=== PATIENT | female | born 1985 | race Caucasian/White ===

== ENCOUNTER 2017-04-05 17:30 | Emergency (ER) | payer SELFPAY ==
[~2017-04-05] VITALS: Ht 165.1 cm; Wt 80.0 kg
[2017-04-05] MEDS ORDERED: KETOROLAC TROMETHAMINE 60 MG/2 ML VIAL IM ONE (18:00)
[2017-04-05 18:44] VITALS: BP 130/78
== END 2017-04-05 18:52 | disposition home or self-care (01) ==
LOC: EMS 17:32
DX: S80.12XA Contusion of left lower leg, initial encounter (principal); V49.50XA Passenger injured in collision with unspecified motor vehicles in traffic accident, initial encounter; Y93.89 Activity, other specified; Y92.89 Other specified places as the place of occurrence of the external cause; Y99.8 Other external cause status
CPT/HCPCS: 96372; 99283; J1885